=== PATIENT | female | born 1975 | race Caucasian/White ===

== ENCOUNTER 2018-12-05 09:59 | Outpatient (CLI) | payer MEDICAID, SELFPAY ==
[2018-12-05 11:03] LABS: HCT 36.2 % (36.0-46.0); HGB 11.3 g/dL (12.0-15.5); Mean Corp. HGB Concentration 31.2 g/dL (32.0-36.0); Mean Corpuscular Volume 92.8 fL (80-95); Mean Platelet Volume 10.5 fL (8.0-11.0); Platelet Count 292 x1000/uL (130-400); RBC Distribution Width 18.4 % (11.7-14.6); White Blood Cell Count 5.39 k/cumm (4.4-10.8)
== END 2018-12-05 10:19 ==
PROVIDERS: PCP Nurse Practitioner Family; Visit Provider Obstetrics & Gynecology
DX: N93.9 Abnormal uterine and vaginal bleeding, unspecified (principal); Z01.818 Encounter for other preprocedural examination
CPT/HCPCS: 36415; 85027; 86850; 86900; 86901

== ENCOUNTER 2018-12-06 06:12 | Day surgery (SDC) | payer MEDICAID, SELFPAY ==
[2018-12-06 06:25] VITALS: BP 120/81; PULSE 66; RESP 18; TEMP 36.7; O2SAT 98
[2018-12-06] MEDS: Lactated Ringers 1,000 ML 125 ML IV (06:47)
[2018-12-06] MEDS: Lidocaine 1% Multi-Dose 50 ML VIAL (07:50)
--- NOTE | 2018-12-06 07:50 | ENDOMET_PTH ---
PATIENT: Lauren Mascorro LOC: [facility] U#:[id number] AGE/SX: 43/F ROOM: RE12/06/[address]: Gunnar Canales MD : 1975 BED: DIS: 12/06/2018 SPEC #: [id number] RECD: 12/06/18 12:46 STATUS: JANET REQ #: [id number] PHIL: 12/06/18 07:[address]: Gunnar Canales DEPT: Surgical Specimen RECD BY: Hodan Apodaca ENTERED: 12/06/18 12:47 SP TYPE: Endomet OTHR DR: Vivian Felipe Tissues: 1 - ENDOMETRIUM BX/CURRETTE 2 - ENDOMETRIUM BX/CURRETTE Procedures: GROSS AND MICRO LEVEL 4 Comments: [id number]
[2018-12-06] MEDS: Lidocaine 2% Jelly 6 ML SYR (07:51)
[2018-12-06 08:40] VITALS: BP 124/80; PULSE 54; RESP 16; TEMP 36; O2SAT 100
--- NOTE | 2018-12-06 09:54 | W.PM.OP ---
Date of service: 12/06/18 Time of Service: 09:54 Operative Note DATE OF PROCEDURE: 12/06/18 PRE-OP DIAGNOSIS: Abnormal uterine bleeding POST-OP DIAGNOSIS: same PROCEDURE: Hysteroscopy, D&C with polypectomy SURGEON: Gunnar Canales ANESTHESIA: MAC and local ESTIMATED BLOOD LOSS: 10 PATHOLOGY: other (1. Endometrial polyps 2. Endometrial curettings) COMPLICATIONS: None Patient was transported to: PACU Patient's condition: stable Findings: 1. Multiple (6-7) small polyps scattered from the lower endometrial cavity to the uterine fundus. Procedure Description: The patient was taken to the operating room and after an adequate level of sedation was achieved the patient was placed in lithotomy position. A weighted speculum was placed in the vagina with good visualization of the cervix. The anterior lip of the cervix was grasped with a single-tooth tenaculum. The paracervical block with 1% plain lidocaine solution was instilled. The 5 mm 30 degree hysteroscope with normal saline distention media was advanced to the cervix with good visualization of the endometrial cavity. There were numerous endometrial polyps from the lower uterine cavity all the way to the fundus. I was able to visualize approximately 6-7 polyps. The hysteroscope was removed and the uterine cavity was explored with polyp forceps and the majority of polyps were removed in this manner. The hysteroscope was reinserted several remained. A sharp curettage was performed and the remaining polyps were removed. This was again confirmed to the hysteroscope. Endometrial polyps and endometrial curettings were submitted as separate specimens. The procedure was concluded at this point. Sponge and instrument counts were correct at the conclusion of the procedure and the patient was transferred to PACU stable condition.
== END 2018-12-06 09:40 | disposition home or self-care (01) ==
PROVIDERS: Visit Provider Obstetrics & Gynecology
PROC: 0UDB8ZZ Extraction of Endometrium, Via Natural or Artificial Opening Endoscopic (ICD-10-PCS; CPT 58558; principal; 2018-12-06 07:30)
DX: N93.8 Other specified abnormal uterine and vaginal bleeding (principal); N71.0 Acute inflammatory disease of uterus; N71.1 Chronic inflammatory disease of uterus; N84.0 Polyp of corpus uteri
CPT/HCPCS: 58558; 81025; 88305; J1100; J1885; J2250; J2405; J3010

== ENCOUNTER 2020-12-28 02:21 | Outpatient (CLI) | payer MEDICAID, SELFPAY ==
--- NOTE | 2020-12-28 09:00 | DI.MAMMO_ITS ---
Exam(s) MAMMO SCREENING EXAM: MAMMO SCREENING CLINICAL HISTORY: screening TECHNIQUE: Bilateral full field digital CC and MLO mammographic images were obtained with 3D tomosyn thesis and utilizing computer aided detection (CAD). COMPARISON: Available for comparison. FINDINGS: Masses/Architectural Distortion: None seen. Microcalcifications: No suspicious pleomorphic-type are seen. Skin Thickening/Nipple Retraction: None. IMPRESSION: 1. No significant interval change with no specific features of malignancy noted. 2. Unless there is more urgent need, screening mammography is recommended, as per [employer] guidelines. BI-RADS Category 1 - Negative Breast Density - Category D - Extremely dense Breast density category C or D implies that the patient has dense breast tissue. Dense breast tissue is very common and is not abnormal but dense breast tissue can make it harder to find cancer on a ma mmogram. Also, dense breast tissue may increase their breast cancer risk. This information about the result of the mammogram report was provided to the patient to raise their awareness. Use this report when you speak with the patient about their risks for breast cancer, which includes their family hist ory. At that time, you may recommend for more screening tests (Ultrasound or MRI) as they might be us eful based on their risk. A negative radiographic report should not delay biopsy if a dominant or clinically suspicious mass is present. Up to ten percent of cancers are not identified on mammography. A negative report may reinforce clinical impression. Adenosis and dense breasts may obscure an underlying neoplasm. False positive reports average 6 to 10%. Patient will receive a letter notifying them of these results.
== END 2020-12-28 02:41 ==
PROVIDERS: PCP Family Medicine; Visit Provider Nurse Practitioner Women's Health
DX: Z12.31 Encounter for screening mammogram for malignant neoplasm of breast (principal)
CPT/HCPCS: 77063; 77067

== ENCOUNTER 2021-07-08 02:36 | Outpatient (CLI) | payer MEDICAID, SELFPAY ==
[2021-07-08 12:29] LABS: Calculated LDL 75 mg/dL (<100); Cholesterol 184 mg/dL (<200); HDL Cholesterol 89 mg/dL (40-60); TSH 1.61 uIU/mL (0.36-3.74); Triglyceride 102 mg/dL (<150)
[2021-07-08 13:16] LABS: Vitamin D 25 Total 67.8 ng/mL (30-100)
== END 2021-07-08 02:37 | disposition home or self-care (01) ==
LOC: LBO 02:37
PROVIDERS: PCP Internal Medicine; Visit Provider Internal Medicine
DX: E55.9 Vitamin D deficiency, unspecified (principal); F32.9 Major depressive disorder, single episode, unspecified; Z13.220 Encounter for screening for lipoid disorders
CPT/HCPCS: 36415; 80061; 82306; 84443

== ENCOUNTER 2022-03-30 12:10 | Outpatient (REF) | payer MEDICAID, SELFPAY ==
--- NOTE | 2022-03-30 11:35 | PAPFT_PTH ---
PATIENT: Lauren Mascorro LOC: [facility] U#:[id number] AGE/SX: 46/F ROOM: RE03/30/[address]: Saranya Mera NP : 1975 BED: DIS: 03/30/2022 SPEC #: [id number] RECD: 03/30/22 17:22 STATUS: JANET BUTCHER #: [id number] PHIL: 03/30/22 11:[address]: Saranya Mera NP DEPT: [facility] Cytology RECD BY: Hodan Apodaca ENTERED: 03/30/22 17:22 SP TYPE: PAPFT OTHR DR: Alie Chong MD Tissues: 1 - CX/ENDOCX FOR PAP SMEARS Procedures: PAP THIN PREP/UVM Screening HPV DNA PROBE Comments: [id number]
== END 2022-03-30 12:11 | disposition home or self-care (01) ==
LOC: LBN 12:10
PROVIDERS: PCP Internal Medicine; Visit Provider Nurse Practitioner Women's Health
DX: Z12.4 Encounter for screening for malignant neoplasm of cervix (principal); Z11.51 Encounter for screening for human papillomavirus (HPV); R87.810 Cervical high risk human papillomavirus (HPV) DNA test positive
CPT/HCPCS: 88142; 87624

== ENCOUNTER 2022-09-05 01:08 | Outpatient (CLI) | payer MEDICAID, SELFPAY ==
[2022-09-05 15:16] LABS: Abs Immature Grans 0.02 10^3/uL (0.0-0.06); Absolute Basophil Count 0.04 10^3/uL (0.0-0.2); Absolute Eosinophil Count 0.07 10^3/uL (0.0-0.7); Absolute Lymphocyte Count 2.83 10^3/uL (1.2-3.4); Absolute Monocyte Count 0.35 10^3/uL (0.1-0.8); Basophils % 0.5; Eosinophils % 0.9; HCT 34.1 % (36.0-46.0); Immature Grans % 0.3; Lymphocytes % 36.7; MCH 28.6 pg (27.0-33.0); MCHC 32.3 % (32.0-36.0); MCV 89 fL (80-95); MPV 9.6 fL (8.0-11.0); Monocytes % 4.5; Neutrophils % 57.1; Platelet Count 222 10^3/uL (130-400); RBC 3.85 10^6/uL (3.93-5.22); RDW 13.1 % (11.7-14.6); RDW-SD 42.6 fL; WBC 7.71 10^3/uL (4.4-10.8)
[2022-09-05 15:21] LABS: ESR < 1 mm/hr (0-20)
[2022-09-05 16:32] LABS: C-Reactive Protein 0.05 mg/dL (0.0-0.3)
== END 2022-09-05 01:09 | disposition home or self-care (01) ==
LOC: LBO 01:08
PROVIDERS: PCP Family Medicine; Visit Provider Orthopaedic Surgery Foot and Ankle Surgery
DX: M85.672 Other cyst of bone, left ankle and foot (principal); M25.872 Other specified joint disorders, left ankle and foot; Z96.662 Presence of left artificial ankle joint
CPT/HCPCS: 36415; 85652; 85025; 86140

== ENCOUNTER 2022-10-26 01:17 | Outpatient (CLI) | payer MEDICAID, SELFPAY ==
--- NOTE | 2022-10-26 07:15 | DI.US_ITS ---
Exam(s) US PELVIS TRANSVAGINAL EXAM: US PELVIS TRANSVAGINAL CLINICAL HISTORY: heavy bleeding,MENORRHAGIA, N92.0 TECHNIQUE: Transabdominal and transvaginal imaging was performed using standard protocol. COMPARISON: No exams were available for comparison FINDINGS: UTERUS: Anteverted. 11.1 by 5.6 x 7.5 cm Endometrium: Thickened at 3 cm. Heterogeneous. Myometrium: Unremarkable. No fibroids identified. Cervix: Unremarkable. OVARIES: Right: Not visualized. Left: Cyst or mass: Follicle. DOPPLER: Color: uniform flow to the left. No hyperemia. CUL-DE-SAC: Free fluid: None. IMPRESSION: 1. Markedly thickened heterogeneous endometrium.. 2. Unremarkable left ovary. Right ovary not visualized.. DATA REPOSITORY:
== END 2022-10-26 01:37 ==
LOC: DI 01:17
PROVIDERS: PCP Student in an Organized Health Care Education/Training Program; Visit Provider Obstetrics & Gynecology
DX: N92.0 Excessive and frequent menstruation with regular cycle (principal); R93.89 Abnormal findings on diagnostic imaging of other specified body structures
CPT/HCPCS: 76830; 76856

== ENCOUNTER 2022-10-29 15:14 | Emergency (ER) | payer MEDICAID, SELFPAY ==
[2022-10-29 15:31] VITALS: BP 143/99; PULSE 80; RESP 16; TEMP 37.2; O2SAT 100
--- NOTE | 2022-10-29 15:48 | ED.GENADUL_ITS ---
Discharge Plan Disposition Patient Disposition: Home Discharge Details Clinical Impression: Abnormal uterine bleeding (AUB) Primary Care Provider: Cate Gómez ED Provider: Amira Kebede Home Meds and New Rx's Prescriptions: Continued ascorbic acid (vitamin C) 500 mg tablet 500 mg PO DAILY cholecalciferol (vitamin D3) 25 mcg/drop ( 1,000 unit/drop) drops 25 mcg PO DAILY magnesium 150 mg PO HS calcium carbonate 500 mg calcium (1,250 mg) tablet 500 mg PO DAILY lorazepam 1 mg tablet 1 mg PO QHS PRN (Reason: insomnia) Qty: 10 0RF naproxen sodium [Aleve] 220 mg capsule 220 mg PO BID bupropion HCl 150 mg tablet extended release 24 hr 150 mg PO QAM Qty: 90 3RF norethindrone acetate [Aygestin] 5 mg tablet 5 mg PO .COMPLEX Qty: 30 0RF Rx Instructions: 5 mg orally every six hours beginning immediately; tranexamic acid 650 mg tablet 1,300 mg PO Q12H 5 Days Qty: 20 0RF multivitamin [Multi-Day] 1 EACH tablet 1 ea PO DAILY Discharge Instructions Instructions: Abnormal (Dysfunctional) Uterine Bleeding (ED) Additional Instructions: Continue to take the previously prescribed medications as directed. Follow-up with PET NUTRITION SPECIALIST Monday. Return to the ER for continued bleeding at this rate, or worsening bleeding. I did speak with Dr. Echevarria who does not feel that you need an emergent surgery today. Follow up with primary care provider/[facility]ITION SPECIALIST in 3-5 days if needed. Return to ED sooner if any worsening or concerns. Increase oral fluids. Your H&H today is 9.9 and 30 Referrals: Cate Gómez DO [Primary Care Provider] - 1 week Ciara Echevarria MD [ [facility]YSICIAN] - 3 days Discharge Data Discharge Date/Time-TO BE ENTERED AT DEPARTURE: 10/29/22 17:00 Medical Decision Making 47-year-old female presents to the ER with a chief complaint of heavy vaginal bleeding. Patient reports that bleeding of 1 pad an hour began yesterday at 11 AM increased today to 1 pad every 1/2 hour. She denies any abdominal pain or cramping. Denies any lightheadedness or dizziness. She does report feeling slightly weak and short of breath. She does have a past medical history of anemia, ankle fracture with recent surgery and vitamin D deficiency. She is scheduled for D&C on and was instructed to present to the ER for evaluation and blood draw by her PET NUTRITION SPECIALIST. CBC CMP type and screen ordered. CBC shows hemoglobin of 9.9 hematocrit of 30.5, moderate blood in the urinalysis 20-50 RBCs, CMP within normal limits. 1633: Spoke with Dr. Yao Jo regarding lab results, she verbalized understanding, she was started on high dose progesterone hormone today. She does not think patient needs a emergent D&C today. I will reiterate recommendations to the patient to continue taking the previously prescribed medications as directed. I will discuss strict return instructions if bleeding increases, dizziness lightheadedness fast heart rate or any concerns to call PET NUTRITION SPECIALIST. Plan moving forward is to continue with her previously scheduled D&C this week. At this time patient's vital signs are within normal limits, her H&H has dropped somewhat but is not criteria for blood transfusion or urgent surgery at this time. Discussed recommendations with patient who verbalized understanding. Patient discharged in hemodynamically stable condition. I did instruct her to continue taking her medication as previously prescribed. This text was generated using [employer] dictation system, please disregard any oddities of phrase or misspellings. Medical Records Medical records reviewed: Yes I reviewed the patient's medical records. Lab Data Lab results reviewed: Yes I reviewed the patient's lab results. Labs: Laboratory Tests Range/Units 10/29/22 10/29/22 10/29/22 15:50 15:50 15:50 WBC (4.4-10.8) 10^3/uL 7.96 RBC (3.93-5.22) 10^6/uL 3.46 L Hgb (11.2-15.7) g/dL 9.9 L Hct (36.0-46.0) % 30.5 L MCV (80-95) fL 88 MCH (27.0-33.0) pg 28.6 MCHC (32.0-36.0) % 32.5 RDW (11.7-14.6) % 13.9 Plt Count (130-400) 10^3/uL 332 MPV (8.0-11.0) fL 10.2 Immature Gran % 0.1 Neutrophils % 56.3 Lymphocytes % 36.2 Monocytes % 5.5 Eosinophils % 1.1 Basophils % 0.8 Nucleated RBC % (0.0-0.3) % 0.0 Absolute Neutrophils (1.2-6.7) 10^3/uL 4.48 Absolute Lymphocytes (1.2-3.4) 10^3/uL 2.88 Absolute Monocytes (0.1-0.8) 10^3/uL 0.44 Absolute Eosinophils (0.0-0.7) 10^3/uL 0.09 Absolute Basophils (0.0-0.2) 10^3/uL 0.06 Sodium (136-145) mmol/L 140 Potassium (3.5-5.1) mmol/L 4.1 Chloride (98-107) mmol/L 103 Carbon Dioxide (21.0-32.0) mmol/L 30.3 Anion Gap (3-11) mmol/L 6.7 BUN (7-18) mg/dL 11 Creatinine (0.55-1.02) mg/dL 0.9 Est GFR (CKD-EPI 2020) (mL/min/1.73m2) 80.34 Glucose (74-106) mg/dL 89 Calcium (8.5-10.1) mg/dL 9.4 Total Bilirubin (0.2-1.0) mg/dL 0.2 AST (15-37) U/L 20 ALT (14-59) U/L 22 Alkaline Phosphatase (46-116) U/L 93 Total Protein (6.4-8.2) g/dL 7.7 Albumin (3.4-5.0) g/dL 4.5 Urine Color (Yellow) Yellow Urine Clarity (Clear) Sl Cloudy Urine pH (5-8) 7.5 Ur Specific [place] (1.005-1.025) 1.020 Urine Protein (Negative) mg/dL Negative Urine Ketones (Negative) mg/dL Negative Urine Blood (Negative) Moderate H Urine Nitrite (Negative) Negative Urine Bilirubin (Negative) Negative Urine Urobilinogen (Up to 0.2) mg/dL 0.2 Ur Leukocyte Esterase (Negative) Negative Urine RBC (0-2) HPF 20-50 H Urine WBC (0-5) HPF 0-2 Ur Epithelial Cells (Negative) HPF Few Urine Crystals (Negative) HPF Negative Urine Bacteria (Negative) HPF Negative Urine Casts (Negative) LPF Negative Urine Mucus (Negative) Negative Urine Other (Negative) Negative Ur Culture Indicated? No Urine Glucose (Negative) mg/dL Negative HPI General Mode of arrival: ambulatory . Date/Time Provider Initiated Documentation: 10/29/22 15:14 . Limitations to Documentation: no limitations . Information obtained by: patient, RN notes reviewed and old records reviewed . HPI Narrative: 47-year-old female presents to the ER with a chief complaint of heavy vaginal bleeding. Patient reports that bleeding of 1 pad an hour began yesterday at 11 AM increased today to 1 pad every 1/2 hour. She denies any abdominal pain or cramping. Denies any lightheadedness or dizziness. She does report feeling slightly weak and short of breath. She does have a past medical history of anemia, ankle fracture with recent surgery and vitamin D deficiency. She is scheduled for D&C on and was instructed to present to the ER for evaluation and blood draw by her PET NUTRITION SPECIALIST. Related Data Home Medications Medication Instructions Recorded Confirmed multivitamin (Multi-Day tablet) 1 ea PO DAILY 11/19/12 10/29/22 ascorbic acid (vitamin C) 500 mg 500 mg PO DAILY 02/16/21 10/29/22 tablet cholecalciferol (vitamin D3) 25 25 mcg PO DAILY 02/16/21 10/29/22 mcg/drop (1,000 unit/drop) oral drops magnesium 150 mg PO HS 11/09/21 10/29/22 bupropion HCl 150 mg 24 hr tablet, 150 mg PO QAM #90 tabs 02/01/22 10/29/22 extended release calcium carbonate 500 mg calcium 500 mg PO DAILY 05/27/22 10/29/22 (1,250 mg) tablet lorazepam 1 mg tablet 1 mg PO QHS PRN insomnia #10 tabs 05/27/22 10/29/22 naproxen sodium 220 mg capsule 220 mg PO BID Ankle pain 09/22/22 10/29/22 (Aleve) norethindrone acetate 5 mg tablet 5 mg PO .COMPLEX #30 tabs 10/29/22 10/29/22 (Aygestin) tranexamic acid 650 mg tablet 1,300 mg PO Q12H 5 days #20 tabs 10/29/22 10/29/22 Previous Rx's Medication Instructions Recorded bupropion HCl 150 mg 24 hr tablet, 150 mg PO QAM #90 tabs 02/01/22 extended release lorazepam 1 mg tablet 1 mg PO QHS PRN insomnia #10 tabs 05/27/22 norethindrone acetate 5 mg tablet 5 mg PO .COMPLEX #30 tabs 10/29/22 (Aygestin) tranexamic acid 650 mg tablet 1,300 mg PO Q12H 5 days #20 tabs 10/29/22 Allergies Allergy/AdvReac Type Severity Reaction Status Date / Time erythromycin base AdvReac Mild VOMITING Verified 10/29/22 16:01 General Stated Complaint: PET NUTRITION SPECIALIST AMBAR: 3 Review of Systems All systems reviewed & are unremarkable except as noted in HPI and below Gastrointestinal Gastrointestinal: Denies abdominal pain, Denies diarrhea, Denies nausea and Denies vomiting Genitourinary Genitourinary: Reports as per HPI and Reports abnormal vaginal bleeding PFSH All Active Problems (Updated 10/29/22 @ 16:45 by Amira Kebede NP) Abnormal uterine bleeding (AUB) (Acute) 09/2018:1 full month heavy bleeding. Hbg 8.4, nl sono. Continuous OCPs x3mo. 11/2020: Pt declining Mirena. 09/2022: very heavy period x2 days Depression (Acute) Generalized anxiety disorder (Acute) Medical History Anemia Arch pain of left foot COVID (~12/04/21) History of ankle fracture Insomnia associated with menopause Resolved with benadryl use Vitamin D deficiency Surgical History Fracture, Open Treatment (09/2016) ORIF LEFT ANKLE. Patient reports is a total ankle replacement [facility] History of ankle surgery (~2009) and 2010 Dr Taylor History of ankle surgery Left ankle Arthrotomy 09/26/22 from f/u [facility] note dated 10/11/22.HE History of total replacement of left ankle (~2016) [facility] S/P biopsy L ankle bone and soft tissue Dr Farnaz MD-[facility] Family History Mother Anxiety Depression Father Bipolar disorder Alcohol abuse Depression Anxiety ADHD Melanoma Brother Alcohol abuse Depression Anxiety Sister Depression Anxiety Brother ADHD Anxiety Depression Maternal Aunt Breast cancer Social History Smoking/Tobacco Use Status: Never Second Hand Exposure: Yes Smoking risk assessment performed?: Yes Alcohol Intake: current Alcohol Intake frequency: a few times a month Alcohol type: wine Drug use: Never Substance use type: does not use Adopted: No Caregiver/Support person: No Foster care: No Household members: children and other Details: Pt is . Has 10yo '[place] Housing: apartment Number of Children: 1 Communication Needs: None Education Level: college Details: Bachelor's current occupation: Student@[employer] Pets and animals: No Sexually active: No Do you think of yourself as: straight/heterosexual Current gender identity: female What is your relationship status?: How often do you talk on the phone with friends or family?: three or more times per week How often do you get together with friends or relatives?: three or more times per week Do you belong to any clubs or organized social groups?: no Panel score (0-1 are the most socially isolated patients): 1 What type of physical activity do you participate in: walking and other Details: hiking Shanita/Islam: Other Special shanita needs: No Seatbelt use: always Working smoke detector in home: Yes Fire extinguisher in home: Yes Carbon monox detector in home: Yes Firearms in home: No Do you feel safe at home: Yes Do you feel safe in your relationship?: Yes Female Reproductive History Menstrual control method: condoms History History 2 Para 1 Hx # Term Pregnancies 1 Multiple births Hx # Pregnancies Ectopic pregnancies AB induced Hx Number of Living Children 1 AB spontaneous Exam Narrative Exam Narrative: Constitutional: Alert and oriented x3. Appears stated age. Normal body habitus. Head: Normocephalic, no trauma. Eyes: Pupils PERRL, Red reflex noted, EOM's intact. Eyelids symmetrical without lesions, discharge, or swelling. ENT: Bilateral TM's WNL, External ear normal to inspection, no mastoid TTP, swelling, or erythema, Nasal turbinates WNL, no nasal discharge. Normal dentition, Posterior pharynx WNL, no exudate. Chest: RRR, Normal S1, S2, distal pulses intact. Resp: Lungs clear to auscultation bilaterally, no wheezes, rales, or rhonchi. Abdomen: Soft, non-distended, Normoactive bowel sounds all 4 quads. Musculoskeletal: Normal gait, 5/5 strength to all four extremities. Skin: No suspicious rashes or lesions. Capillary refill less than 2 sec. Neurologic: Cranial nerves II-XII intact. Alert and oriented x 3. Motor: No deficits noted. Sensory: Intact bilaterally all 4 extremities. Reflexes: DTR's intact bilaterally.. Hematologic/Lymphatic: No ecchymosis, no lymphadenopathy. Course Vital Signs Vital signs: Vital Signs Temperature 37.2 C 10/29/22 15:31 Pulse 80 10/29/22 15:31 Respiratory Rate 16 10/29/22 15:31 Blood Pressure 143/99 H 10/29/22 15:31 Pulse Oximetry 100 10/29/22 15:31 Temperature 37.2 C 10/29/22 15:31 Temperature Source Oral 10/29/22 15:31 Pulse 80 10/29/22 15:31 Respiratory Rate 16 10/29/22 15:31 Blood Pressure 143/99 H 10/29/22 15:31 Blood Pressure Position Sitting 10/29/22 15:31 Pulse Oximetry 100 10/29/22 15:31 Oxygen Delivery Method Room Air 10/29/22 15:31 Oxygen Flow Rate 0 10/29/22 15:31 Pain Level 0 10/29/22 15:31
[2022-10-29 16:07] LABS: Abs Immature Grans 0.01 10^3/uL (0.0-0.06); Absolute Basophil Count 0.06 10^3/uL (0.0-0.2); Absolute Eosinophil Count 0.09 10^3/uL (0.0-0.7); Absolute Lymphocyte Count 2.88 10^3/uL (1.2-3.4); Absolute Monocyte Count 0.44 10^3/uL (0.1-0.8); Absolute Neutrophil Count 4.48 10^3/uL (1.2-6.7); Basophils % 0.8; Eosinophils % 1.1; HCT 30.5 % (36.0-46.0); HGB 9.9 g/dL (11.2-15.7); Immature Grans % 0.1; Lymphocytes % 36.2; MCH 28.6 pg (27.0-33.0); MCHC 32.5 % (32.0-36.0); MCV 88 fL (80-95); MPV 10.2 fL (8.0-11.0); Monocytes % 5.5; Neutrophils % 56.3; Platelet Count 332 10^3/uL (130-400); RBC 3.46 10^6/uL (3.93-5.22); RDW 13.9 % (11.7-14.6); RDW-SD 43.9 fL; WBC 7.96 10^3/uL (4.4-10.8)
[2022-10-29 16:08] LABS: Bilirubin Negative (Negative); Blood Moderate (Negative); Clarity Sl Cloudy (Clear); Glucose Negative (Negative); Ketones Negative (Negative); Leukocyte Esterase Negative (Negative); Nitrite Negative (Negative); Urobilinogen 0.2 mg/dL (Up to 0.2); pH 7.5 (5-8)
[2022-10-29 16:11] LABS: Bacteria Negative HPF (Negative); C & S Indicated? No; Casts Negative LPF (Negative); Crystals Negative HPF (Negative); Epithelial Cells Few HPF (Negative); Mucus Negative (Negative); Other Cells Negative (Negative); RBC 20-50 HPF (0-2); WBC 0-2 HPF (0-5)
[2022-10-29 16:18] LABS: ALT 22 U/L (14-59); AST 20 U/L (15-37); Albumin 4.5 g/dL (3.4-5.0); Alkaline Phosphatase 93 U/L (46-116); Anion Gap 6.7 mmol/L (3-11); BUN 11 mg/dL (7-18); Bilirubin, Total 0.2 mg/dL (0.2-1.0); CO2 30.3 mmol/L (21.0-32.0); CREATININE 0.9 mg/dL (0.55-1.02); Calcium 9.4 mg/dL (8.5-10.1); Chloride 103 mmol/L (98-107); Estimated GFR 80.34 (mL/min/1.73m2); Glucose 89 mg/dL (74-106); Potassium 4.1 mmol/L (3.5-5.1); Sodium 140 mmol/L (136-145); Total Protein 7.7 g/dL (6.4-8.2)
[2022-10-29 16:58] VITALS: BP 129/84; PULSE 65; RESP 16; TEMP 37; O2SAT 99
== END 2022-10-29 17:00 | disposition home or self-care (01) ==
PROVIDERS: Emergency Provider Registered Nurse Emergency; PCP Student in an Organized Health Care Education/Training Program
DX: N93.9 Abnormal uterine and vaginal bleeding, unspecified (principal)
CPT/HCPCS: 36415; 80053; 86850; 86900; 86901; 99283; 81003; 81015; 85025

== ENCOUNTER 2022-11-01 02:27 | Outpatient (CLI) | payer MEDICAID, SELFPAY ==
[2022-11-01 13:25] LABS: HCG Qual (Serum) Negative
== END 2022-11-01 02:28 | disposition home or self-care (01) ==
LOC: LBO 02:28
PROVIDERS: PCP Student in an Organized Health Care Education/Training Program; Visit Provider Obstetrics & Gynecology
DX: Z01.818 Encounter for other preprocedural examination (principal)
CPT/HCPCS: 36415; 86850; 86900; 86901; 84703

== ENCOUNTER 2022-11-03 11:25 | Day surgery (SDC) | payer MEDICAID, SELFPAY ==
[2022-11-03] VITALS (7 sets, daily range): BP systolic 111–137; BP diastolic 52–104; PULSE 61–87; RESP 16–23; TEMP 36.3–36.7; O2SAT 97–100; BMI 31.6
[2022-11-03] MEDS: Lactated Ringers 1,000 ML 125 ML IV (12:05)
--- NOTE | 2022-11-03 12:36 | W.ANESPRE ---
General Info Date of Service Date Performed: 11/03/22 Height: 5 ft 4 in Weight: 83.5 kg Body Mass Index (BMI): 31.6 Surgical Procedure: Operation Date: 11/03/22 13:10 Proposed Procedure Side Surgeon p Dilation & Curettage with Hysteroscopy, Myosure Simi Fairbanks MD s Insertion of IUD, Judy Fairbanks MD Pre-Op Diagnosis Post-Op Diagnosis Abnormal uterine bleeding Meds Allergies and Home Medications Allergies Allergy/AdvReac Type Severity Reaction Status Date / Time erythromycin base AdvReac Mild VOMITING Verified 11/03/22 11:31 Home Medication Medication Instructions Recorded multivitamin (Multi-Day tablet) 1 ea PO DAILY 11/19/12 ascorbic acid (vitamin C) 500 mg 500 mg PO DAILY 02/16/21 tablet cholecalciferol (vitamin D3) 25 25 mcg PO DAILY 02/16/21 mcg/drop (1,000 unit/drop) oral drops magnesium 150 mg PO HS 11/09/21 bupropion HCl 150 mg 24 hr tablet, 150 mg PO QAM #90 tabs 02/01/22 extended release calcium carbonate 500 mg calcium 500 mg PO DAILY 05/27/22 (1,250 mg) tablet lorazepam 1 mg tablet 1 mg PO QHS PRN insomnia #10 tabs 05/27/22 naproxen sodium 220 mg capsule 220 mg PO BID Ankle pain 09/22/22 (Aleve) norethindrone acetate 5 mg tablet 5 mg PO .COMPLEX #30 tabs 10/29/22 (Aygestin) Current Visit Medications: Current Medications Generic Name Dose Route Start Last Admin Trade Name Ayoq PRN Reason Stop Dose Admin Ringer's Solution 1,000 mls @ 125 mls/hr 11/03/22 06:00 11/03/22 12:05 IV 11/03/22 16:00 125 mls/hr INFUSION KIANA Administration IV Miscellaneous Supplies 1 each 11/03/22 06:00 Iv Access IV 11/03/22 23:59 DIRECTED KIANA Sodium Chloride 0 ml 11/03/22 06:00 Normal Saline Flush 10 Ml Syr IV 11/03/22 23:59 PRN PRN Sodium Chloride 0 ml 11/03/22 06:00 Normal Saline 10 Ml Vial IJ 11/03/22 23:59 DIRECTED PRN Sterile Water 0 ml 11/03/22 06:00 Water,Injection,Sterile 10 Ml Vial IJ 11/03/22 23:59 DIRECTED PRN PFSH Active Problems Active Problems: Problem Status Onset Code Abnormal uterine bleeding (AUB) Depression F32.9 Generalized anxiety disorder F41.1 Medical History Medical History Anemia Arch pain of left foot COVID (~12/04/21) History of ankle fracture Insomnia associated with menopause Resolved with benadryl use Vitamin D deficiency Surgical History Surgical History Fracture, Open Treatment (09/2016) ORIF LEFT ANKLE. Patient reports is a total ankle replacement [facility] History of ankle surgery (~2009) and 2010 Dr Taylor History of ankle surgery Left ankle Arthrotomy 09/26/22 from f/u [facility] note dated 10/11/22.HE History of total replacement of left ankle (~2016) [facility] S/P biopsy L ankle bone and soft tissue Dr Farnaz MD-[facility] Tobacco Smoking/Tobacco Use Status: Never Passive smoking exposure: No Second hand exposure: Yes Alcohol Alcohol Intake: current Alcohol intake frequency: a few times a month Alcohol type: wine Substance Use Substance use: Never Substance use type: does not use Prental History History 2 Para 1 Hx # Term Pregnancies 1 Multiple births Hx # Pregnancies Ectopic pregnancies AB induced Hx Number of Living Children 1 AB spontaneous Vital Signs and Lab Results Vital Signs Most Recent Vital Signs in EMR: Most Recent Vital Signs Temp Pulse Resp BP Pulse Ox 36.3 C L 87 16 137/104 H 97 11/03/22 11:36 11/03/22 11:36 11/03/22 11:36 11/03/22 11:36 11/03/22 11:36 Lab Results Blood Type / Crossmatch: Patient ABO/Rh A Negative 11/01/22 Antibody Screen NEGATIVE 11/01/22 Complete Blood Count: White Blood Count 7.96 10^3/uL (4.4-10.8) 10/29/22 15:50 Red Blood Count 3.46 10^6/uL (3.93-5.22) L 10/29/22 15:50 Hemoglobin 9.9 g/dL (11.2-15.7) L 10/29/22 15:50 Hematocrit 30.5 % (36.0-46.0) L 10/29/22 15:50 Platelet Count 332 10^3/uL (130-400) 10/29/22 15:50 Complete Metabolic Panel: Sodium 140 mmol/L (136-145) 10/29/22 15:50 Potassium 4.1 mmol/L (3.5-5.1) 10/29/22 15:50 Chloride 103 mmol/L (98-107) 10/29/22 15:50 Carbon Dioxide 30.3 mmol/L (21.0-32.0) 10/29/22 15:50 BUN 11 mg/dL (7-18) 10/29/22 15:50 Creatinine 0.9 mg/dL (0.55-1.02) 10/29/22 15:50 Est GFR (CKD-EPI 2020) 80.34 (mL/min/1.73m2) 10/29/22 15:50 Calcium 9.4 mg/dL (8.5-10.1) 10/29/22 15:50 Albumin 4.5 g/dL (3.4-5.0) 10/29/22 15:50 Glucose 89 mg/dL (74-106) 10/29/22 15:50 Liver Function Panel: Alanine Aminotransferase (ALT/SGPT) 22 U/L (14-59) 10/29/22 15:50 Aspartate Amino Transf (AST/SGOT) 20 U/L (15-37) 10/29/22 15:50 Coagulation Panel: No Data to Display Cardiac Panel: No Data to Display Arterial Blood Gas: No Data to Display Venous Blood Gas: No Data to Display Pancreas Panel: No Data to Display Thyroid Panel: No Data to Display Infectious Disease: No Data to Display Blood Cultures: No Data to Display Toxicology Panel: No Data to Display Panel: Urine HCG, Qualitative Negative 10/21/22 15:29 Serum HCG, Qualitative Negative 11/01/22 12:18 Anesthesia Assessment and Plan Anesthesia History Personal History: No History of Anesthesia Complications Family History: No Family History of Anesthesia Complications Exercise Tolerance Exercise Tolerance: Metabolic Equivalents>4 Pertinent Negatives Pertinent Negatives: No Symptoms of GERD, No Major Cardiovascular Symptoms or Complaints and No Major Pulmonary Symptoms or Complaints Cardiac & Pulmonary Exam Cardiac Exam: Normal S1/S2 Heart Sounds Pulmonary Exam: Clear Bilateral Breath Sounds Implantable Cardiac Device Does patient have a Pacemaker or an ICD?: No Airway Exam Known Difficult Airway: No Mallampati Class: 2 Mouth Opening: Normal (> 3cm) Thyromental Distance: Greater than 3 cm Neck Range of Motion: Full ROM Neck Circumference: Normal Teeth Condition: Normal Dentition ASA Classification ASA Score: ASA 2 Emergency Case?: No NPO Status NPO Status: NPO Clears >2 hours, Solids >8 hours Status Status: Negative HCG Anesthesia Plan Resuscitation Status: Full Code Anesthesia Technique: General Anesthesia Airway Planned: Natural Airway Monitors Used: Standard Monitors
--- NOTE | 2022-11-03 13:20 | ENDOMET_PTH ---
PATIENT: Lauren Mascorro LOC: [facility] U#:[id number] AGE/SX: 47/F ROOM: RE11/03/[address]: Simi Fairbanks MD : 1975 BED: DIS: 11/03/2022 SPEC #: [id number] RECD: 11/03/22 17:59 STATUS: JANET REQ #: [id number] PHIL: 11/03/22 13:[address]: Simi Fairbanks DEPT: Surgical Specimen RECD BY: Hodan Apodaca ENTERED: 11/03/22 17:59 SP TYPE: Endomet OTHR DR: Cate Gómez DO Tissues: 1 - ENDOMETRIUM BX/CURRETTE Procedures: GROSS AND MICRO LEVEL 4 Comments: [id number]
--- NOTE | 2022-11-03 13:51 | W.ANESPOSTOP ---
Postoperative Evaluation Date, Time and Location Date Performed: 11/03/22 Time Performed: 13:51 Patient Location: PACU Vital Signs Most Recent Imported Vital Signs: Most Recent Vital Signs Temp Pulse Resp BP Pulse Ox 36.5 C 67 16 131/80 100 11/03/22 13:43 11/03/22 13:43 11/03/22 13:43 11/03/22 13:43 11/03/22 13:43 Pain Score Most Recent Pain Score: Most Recent Pain Score Pain Level 0 11/03/22 13:43 Assessment Mental Status: Awake (Alert & Oriented to Patient Baseline) Airway and Respiratory Function: Patent airway with normal (patient baseline) respiratory exam Cardiovascular Function: Hemodynamically Stable Hydration Status: Adequately Hydrated Nausea & Vomiting: No Nausea or Vomiting Pain: Pt. Denies Any Pain Peripheral Nerve Block: Patient did not receive a nerve block
--- NOTE | 2022-11-03 14:07 | W.PM.DSUDISC ---
Date of service: 11/03/22 Time of Service: 14:07 Discharge Plan Disposition Condition: Good Discharge Details Attending Provider: Simi Fairbanks Primary Care Provider: Cate Gómez Home Meds and New Rx's Prescriptions: Continued ascorbic acid (vitamin C) 500 mg tablet 500 mg PO DAILY cholecalciferol (vitamin D3) 25 mcg/drop ( 1,000 unit/drop) drops 25 mcg PO DAILY magnesium 150 mg PO HS calcium carbonate 500 mg calcium (1,250 mg) tablet 500 mg PO DAILY lorazepam 1 mg tablet 1 mg PO QHS PRN (Reason: insomnia) Qty: 10 0RF naproxen sodium [Aleve] 220 mg capsule 220 mg PO BID bupropion HCl 150 mg tablet extended release 24 hr 150 mg PO QAM Qty: 90 3RF multivitamin [Multi-Day] 1 EACH tablet 1 ea PO DAILY Discontinued norethindrone acetate [Aygestin] 5 mg tablet 5 mg PO .COMPLEX Qty: 30 0RF Rx Instructions: 5 mg orally every six hours beginning immediately; Discharge Instructions Activity:: Activity as Tolerated Diet:: As Tolerated
--- NOTE | 2022-11-03 14:07 | W.PM.OP ---
Date of service: 11/03/22 Time of Service: 13:00 Operative Note Operative Note DATE OF PROCEDURE: 11/03/22 PRE-OP DIAGNOSIS: Abnormal uterine bleeding PROCEDURE: Hysteroscopy, dilation and curettage. Kyleena IUD insertion. SURGEON: Simi Fairbanks Refer to Anesthesia Record COMPLICATIONS: None Indications: Long h/o irregular heavy bleeding with prior D&C in 2019. Mood changes with COCPs and POPs in the past. Recent acute episode of bleeding. Sono 3cm endometrium. Findings: Thick endometrium. No obvious polyps. Procedure Description: After informed consent was signed the patient was taken to the operating room and given General room air anesthesia. SCDs were placed on her legs. She was prepped and draped in the dorsal lithotomy position in the [facility]. A time out was performed. Her bladder was drained of urine prior to arrival in the OR. Exam under anesthesia revealed normal external genitalia, vagina normal for age and a normal sized uterus. A speculum was placed into the vagina to reveal the cervix. The anterior lip of the cervix was grasped with a single tooth tenaculum. The uterus was sounded to 10cm. The hysteroscope was assembled and inserted through the cervix. The uterine cavity was visualized. There was copious endometrial tissue but no obvious polyps or fibroids. A sharp curettage was performed collecting a large amount of endometrial tissue. The Kyleena IUD was inserted without difficulty. The strings were trimmed to ~3cm. The tenaculum was removed from the cervix with good hemostasis. The speculum was removed from the vagina. The patient was placed back into the supine position. She was moved to the stretcher and taken to the recovery room in stable condition.
== END 2022-11-03 15:09 | disposition home or self-care (01) ==
PROVIDERS: PCP Student in an Organized Health Care Education/Training Program; Visit Provider Obstetrics & Gynecology
PROC: 0UDB8ZZ Extraction of Endometrium, Via Natural or Artificial Opening Endoscopic (ICD-10-PCS; CPT 58558; principal; 2022-11-03 13:00)
PROC: (CPT 58563; 2022-11-03 13:00)
DX: N93.9 Abnormal uterine and vaginal bleeding, unspecified (principal); R93.89 Abnormal findings on diagnostic imaging of other specified body structures; F41.1 Generalized anxiety disorder; F32.A Depression, unspecified; R87.89 Other abnormal findings in specimens from female genital organs
CPT/HCPCS: 58563; 58300; 88305; J1100; J1885; J2250; J2405

== ENCOUNTER 2023-01-16 03:00 | Outpatient (CLI) | payer MEDICAID, SELFPAY ==
[2023-01-16 12:37] LABS: Abs Immature Grans 0.02 10^3/uL (0.0-0.06); Absolute Basophil Count 0.04 10^3/uL (0.0-0.2); Absolute Eosinophil Count 0.06 10^3/uL (0.0-0.7); Absolute Lymphocyte Count 2.29 10^3/uL (1.2-3.4); Absolute Monocyte Count 0.35 10^3/uL (0.1-0.8); Absolute Neutrophil Count 3.63 10^3/uL (1.2-6.7); Basophils % 0.6; Eosinophils % 0.9; HCT 36.4 % (36.0-46.0); HGB 11.8 g/dL (11.2-15.7); Immature Grans % 0.3; Lymphocytes % 35.8; MCH 27.9 pg (27.0-33.0); MCHC 32.4 % (32.0-36.0); MCV 86 fL (80-95); MPV 9.9 fL (8.0-11.0); Monocytes % 5.5; Neutrophils % 56.9; Platelet Count 261 10^3/uL (130-400); RBC 4.23 10^6/uL (3.93-5.22); RDW 11.9 % (11.7-14.6); RDW-SD 37.9 fL; WBC 6.39 10^3/uL (4.4-10.8)
[2023-01-16 13:48] LABS: Folate > 20.0 ng/mL (8.6-20.0)
[2023-01-16 14:00] LABS: Ferritin 10 ng/mL (8-252); TSH (W/Ref FT4) 1.43 uIU/mL (0.36-3.74); Vitamin B12 861 pg/mL (193-986)
[2023-01-16 14:18] LABS: Iron 51 ug/dL (50-170); Total Iron Binding Capacity 437 ug/dL (250-450); Transferrin Sat 12 % (15-50)
== END 2023-01-16 03:01 | disposition home or self-care (01) ==
LOC: LBO 03:00
PROVIDERS: PCP Student in an Organized Health Care Education/Training Program; Visit Provider Nurse Practitioner
DX: E55.9 Vitamin D deficiency, unspecified (principal); R45.1 Restlessness and agitation; R53.83 Other fatigue; Z87.898 Personal history of other specified conditions; Z91.89 Other specified personal risk factors, not elsewhere classified; D64.9 Anemia, unspecified; R63.5 Abnormal weight gain
CPT/HCPCS: 36415; 82607; 82728; 82746; 83540; 83550; 84443; 85025

== ENCOUNTER 2023-02-20 01:56 | Outpatient (RCR) | payer MEDICAID, SELFPAY ==
[2023-02-06] MEDS: IRON SUCROSE COMPLEX 200 MG in Normal Saline 100 ML 440 MG IVPB (09:24)
[2023-02-06] MEDS: Normal Saline Flush 10 ML SYR IVP (09:27)
[2023-02-13] MEDS: IRON SUCROSE COMPLEX 200 MG in Normal Saline 100 ML 440 MG IVPB (09:17)
[2023-02-13] MEDS: Normal Saline Flush 10 ML SYR IVP (09:17)
[2023-02-20] MEDS: IRON SUCROSE COMPLEX 200 MG in Normal Saline 100 ML 440 MG IVPB (09:11)
[2023-02-20] MEDS: Normal Saline Flush 10 ML SYR IVP (09:11)
== END 2023-02-20 23:59 | disposition home or self-care (01) ==
LOC: INF 01:56
PROVIDERS: PCP Student in an Organized Health Care Education/Training Program; Visit Provider Student in an Organized Health Care Education/Training Program
DX: D50.9 Iron deficiency anemia, unspecified (principal)
CPT/HCPCS: 96365; J1756

== ENCOUNTER 2023-03-06 03:34 | Outpatient (RCR) | payer MEDICAID, SELFPAY ==
[2023-02-27] MEDS: IRON SUCROSE COMPLEX 200 MG in Normal Saline 100 ML 440 MG IVPB (09:22)
[2023-02-27] MEDS: Normal Saline Flush 10 ML SYR IVP (09:27)
[2023-03-06] MEDS: Normal Saline Flush 10 ML SYR IVP (09:20)
[2023-03-06] MEDS: IRON SUCROSE COMPLEX 200 MG in Normal Saline 100 ML 440 MG IVPB (09:20)
== END 2023-03-23 23:59 | disposition home or self-care (01) ==
LOC: INF 03:34
PROVIDERS: PCP Student in an Organized Health Care Education/Training Program; Visit Provider Student in an Organized Health Care Education/Training Program
DX: D50.9 Iron deficiency anemia, unspecified (principal)
CPT/HCPCS: 96365; J1756

== ENCOUNTER 2023-03-13 05:01 | Outpatient (CLI) | payer MEDICAID, SELFPAY ==
[2023-03-13 11:02] LABS: HGB 13.1 g/dL (11.2-15.7)
[2023-03-13 11:17] LABS: Iron 145 ug/dL (50-170); Total Iron Binding Capacity 329 ug/dL (250-450); Transferrin Sat 44 % (15-50)
[2023-03-13 11:33] LABS: Hemoglobin A1C 5.5 % (<5.7)
[2023-03-13 18:33] LABS: Cortisol (Baseline) 10 ug/dL (4-23)
== END 2023-03-13 05:02 | disposition home or self-care (01) ==
LOC: LBO 05:01
PROVIDERS: PCP Student in an Organized Health Care Education/Training Program; Visit Provider Student in an Organized Health Care Education/Training Program
DX: E61.1 Iron deficiency (principal); F32.89 Other specified depressive episodes; R53.83 Other fatigue; R73.09 Other abnormal glucose
CPT/HCPCS: 36415; 80400; 83036; 83540; 83550; 85018

== ENCOUNTER 2023-03-17 18:16 | Outpatient (REF) | payer MEDICAID, SELFPAY ==
--- OUTSIDE RECORDS SUMMARY | 2023-03-17 18:20 | XMS_ITS | Continuity of Care Document ---
Author Name Unknown Organization [facility] Address [address] [place] [address] Encounter LTTL_GA FIN NBR [id number] Date(s): 09/16/22 - 09/16/22 [facility] [address], [place] [address] Discharge Disposition: Home or Self Care Attending Physician: Flor Sullivan Admitting Physician: Flor Sullivan Assessment and Plan Future Scheduled Tests Laboratory* Lipid Panel 06/07/22 * Microalbumin Level Urine 06/07/22 * TSH w/ Rflx to Free T4 06/07/22 * Hemoglobin A1c 06/07/22
[2023-03-21 18:01] LABS: Midnight Cortisol <50 ng/dL (<100)
== END 2023-03-17 18:17 | disposition home or self-care (01) ==
LOC: LBN 18:16
PROVIDERS: PCP Student in an Organized Health Care Education/Training Program; Visit Provider Student in an Organized Health Care Education/Training Program
DX: E61.1 Iron deficiency (principal); F41.1 Generalized anxiety disorder; F32.9 Major depressive disorder, single episode, unspecified; G47.9 Sleep disorder, unspecified; Z86.2 Personal history of diseases of the blood and blood-forming organs and certain disorders involving the immune mechanism
CPT/HCPCS: 82530

== ENCOUNTER → 2023-05-02 00:56 | Outpatient (CLI) | payer MEDICAID, SELFPAY ==
--- NOTE | 2023-05-02 07:00 | DI.US_ITS ---
Exam(s) US PELVIS TRANSVAGINAL EXAM: US PELVIS TRANSVAGINAL CLINICAL HISTORY: check IUD,ABNL UTERINE BLEEDING,Z30.431. TECHNIQUE: Transabdominal and transvaginal pelvic ultrasound was performed using standard protocol. COMPARISON: US US PELVIS TRANSVAGINAL from 10/26/2022 FINDINGS: UTERUS: Position: Anteverted. Size: 8.8 long by 4.1 AP by 5.0 transverse cm Endometrium: 0.7 cm. Normal for patient's menstrual status. The IUD is in good position. Myometrium: Unremarkable. Cervix: Unremarkable. OVARIES: Right: 3.2 x 1.9 x 2.2 cm Cyst or mass: No suspicious cystic or solid masses. Left: 3.7 x 2.5 x 3.1 cm Cyst or mass: No suspicious cystic or solid masses. There is a 2.6 x 2.1 x 2.8 cm follicular cyst on the left ovary. DOPPLER: Color: Symmetric and uniform flow to both ovaries. CUL-DE-SAC: Free fluid: None. Other: None. IMPRESSION: 1. Normal-appearing uterus with endometrial stripe within normal limits. 2. The IUD is in good position. 3. 2.6 x 2.1 x 2.8 cm left ovarian follicular cyst. DATA REPOSITORY:
== END ==
PROVIDERS: PCP Student in an Organized Health Care Education/Training Program; Visit Provider Obstetrics & Gynecology
DX: Z30.431 Encounter for routine checking of intrauterine contraceptive device (principal)
CPT/HCPCS: 76830; 76856

== ENCOUNTER 2023-06-09 15:02 | Outpatient (CLI) | payer MEDICAID, SELFPAY ==
[2023-06-09 12:25] LABS: HGB 13.4 g/dL (11.2-15.7)
[2023-06-09 13:14] LABS: ALT 22 U/L (14-59); AST 14 U/L (15-37); Albumin 4.1 g/dL (3.4-5.0); Alkaline Phosphatase 77 U/L (46-116); Anion Gap 7.4 mmol/L (3-11); BUN 14 mg/dL (7-18); Bilirubin, Total 0.7 mg/dL (0.2-1.0); CO2 28.6 mmol/L (21.0-32.0); CREATININE 0.9 mg/dL (0.55-1.02); Calcium 9.6 mg/dL (8.5-10.1); Calculated LDL 84 mg/dL (<100); Chloride 102 mmol/L (98-107); Cholesterol 170 mg/dL (<200); Estimated GFR 79.85 (mL/min/1.73m2); Ferritin 175 ng/mL (8-252); Glucose 94 mg/dL (74-106); HDL Cholesterol 65 mg/dL (40-60); Potassium 4.2 mmol/L (3.5-5.1); Sodium 138 mmol/L (136-145); Total Protein 7.5 g/dL (6.4-8.2); Triglyceride 108 mg/dL (<150)
[2023-06-09 13:18] LABS: Iron 124 ug/dL (50-170); Total Iron Binding Capacity 344 ug/dL (250-450); Transferrin Sat 36 % (15-50)
[2023-06-09 13:25] LABS: Vitamin D 25 Total 67.4 ng/mL (30-100)
== END 2023-06-09 15:03 | disposition home or self-care (01) ==
LOC: LBO 15:03
PROVIDERS: PCP Student in an Organized Health Care Education/Training Program; Visit Provider Student in an Organized Health Care Education/Training Program
DX: E61.1 Iron deficiency (principal); Z86.2 Personal history of diseases of the blood and blood-forming organs and certain disorders involving the immune mechanism; R73.09 Other abnormal glucose; Z13.220 Encounter for screening for lipoid disorders
CPT/HCPCS: 36415; 80053; 80061; 82306; 82728; 83540; 83550; 85018

== ENCOUNTER 2023-10-13 14:50 | Outpatient (CLI) | payer MEDICAID, SELFPAY ==
[2023-10-13 14:44] LABS: Abs Immature Grans 0.02 10^3/uL (0.0-0.06); Absolute Basophil Count 0.03 10^3/uL (0.0-0.2); Absolute Eosinophil Count 0.05 10^3/uL (0.0-0.7); Absolute Lymphocyte Count 2.35 10^3/uL (1.2-3.4); Absolute Neutrophil Count 5.76 10^3/uL (1.2-6.7); Basophils % 0.3; Eosinophils % 0.6; HCT 41.9 % (36.0-46.0); HGB 13.6 g/dL (11.2-15.7); Immature Grans % 0.2; Lymphocytes % 27.3; MCH 28.5 pg (27.0-33.0); MCHC 32.5 % (32.0-36.0); MCV 88 fL (80-95); MPV 9.8 fL (8.0-11.0); Monocytes % 4.6; Platelet Count 314 10^3/uL (130-400); RBC 4.77 10^6/uL (3.93-5.22); RDW 12.4 % (11.7-14.6); RDW-SD 40.5 fL; WBC 8.61 10^3/uL (4.4-10.8)
[2023-10-13 15:54] LABS: Iron 92 ug/dL (50-170); Total Iron Binding Capacity 374 ug/dL (250-450); Transferrin Sat 25 % (15-50)
[2023-10-13 16:16] LABS: Vitamin D 25 Total 69.3 ng/mL (30-100)
[2023-10-13 18:05] LABS: Ferritin 119 ng/mL (8-252)
== END 2023-10-13 14:51 | disposition home or self-care (01) ==
LOC: LBO 14:58
PROVIDERS: PCP Student in an Organized Health Care Education/Training Program; Visit Provider Student in an Organized Health Care Education/Training Program
DX: E61.1 Iron deficiency (principal); G47.61 Periodic limb movement disorder; Z87.898 Personal history of other specified conditions; K90.9 Intestinal malabsorption, unspecified
CPT/HCPCS: 36415; 82306; 82728; 83540; 83550; 85025

== ENCOUNTER 2024-01-12 10:54 | Outpatient (CLI) | payer MEDICAID, SELFPAY ==
[2024-01-12 10:42] LABS: HCT 38.3 % (36.0-46.0); HGB 12.6 g/dL (11.2-15.7); MCH 28.8 pg (27.0-33.0); MCHC 32.9 % (32.0-36.0); MCV 87 fL (80-95); Platelet Count 282 10^3/uL (130-400); RBC 4.38 10^6/uL (3.93-5.22); RDW 12.8 % (11.7-14.6); RDW-SD 41.2 fL
[2024-01-12 11:39] LABS: Anion Gap 7.9 mmol/L (3-11); BUN 14 mg/dL (7-18); CO2 28.1 mmol/L (21.0-32.0); CREATININE 0.9 mg/dL (0.55-1.02); Calcium 8.9 mg/dL (8.5-10.1); Calculated LDL 79 mg/dL (<100); Chloride 105 mmol/L (98-107); Cholesterol 158 mg/dL (<200); Estimated GFR 79.85 (mL/min/1.73m2); Ferritin 122 ng/mL (8-252); Glucose 93 mg/dL (74-106); HDL Cholesterol 62 mg/dL (40-60); Magnesium 2.1 mg/dL (1.8-2.4); Potassium 4.2 mmol/L (3.5-5.1); Sodium 141 mmol/L (136-145); Triglyceride 89 mg/dL (<150); Vitamin D 25 Total 69.1 ng/mL (30-100)
[2024-01-12 11:59] LABS: Iron 76 ug/dL (50-170); Total Iron Binding Capacity 335 ug/dL (250-450); Transferrin Sat 23 % (15-50)
== END 2024-01-12 10:55 | disposition home or self-care (01) ==
LOC: LBO 10:55
PROVIDERS: PCP Student in an Organized Health Care Education/Training Program; Visit Provider Student in an Organized Health Care Education/Training Program
DX: E61.1 Iron deficiency (principal); G47.19 Other hypersomnia; Z91.89 Other specified personal risk factors, not elsewhere classified; I10 Essential (primary) hypertension; Z13.220 Encounter for screening for lipoid disorders
CPT/HCPCS: 36415; 80048; 80061; 82306; 85027; 82728; 83540; 83550; 83735

== ENCOUNTER 2025-01-03 15:55 | Outpatient (CLI) | payer OTHER, SELFPAY ==
[2025-01-03 16:01] LABS: HCT 40.2 % (36.0-46.0); HGB 13.4 g/dL (11.2-15.7); MCH 28.5 pg (27.0-33.0); MCHC 33.3 % (32.0-36.0); MCV 86 fL (80-95); MPV 9.8 fL (8.0-11.0); Platelet Count 313 10^3/uL (130-400); RDW 12.1 % (11.7-14.6); RDW-SD 37.9 fL; WBC 6.82 10^3/uL (4.4-10.8)
[2025-01-03 16:02] LABS: HGB 13.1 g/dL (11.2-15.7)
[2025-01-03 16:29] LABS: Hemoglobin A1C 5.8 % (<5.7)
[2025-01-03 16:43] LABS: ALT 31 U/L (14-59); AST 17 U/L (15-37); Albumin 4.6 g/dL (3.4-5.0); Alkaline Phosphatase 85 U/L (46-116); Anion Gap 7.7 mmol/L (3-11); BUN 17 mg/dL (7-18); Bilirubin, Total 0.4 mg/dL (0.2-1.0); CO2 31.3 mmol/L (21.0-32.0); CREATININE 1.2 mg/dL (0.55-1.02); Calcium 9.7 mg/dL (8.5-10.1); Chloride 102 mmol/L (98-107); Estimated GFR 56.19 (mL/min/1.73m2); Ferritin 89 ng/mL (8-252); Glucose 95 mg/dL (74-106); Potassium 4.1 mmol/L (3.5-5.1); Sodium 141 mmol/L (136-145); TSH (W/Ref FT4) 1.13 uIU/mL (0.36-3.74); Total Protein 8.2 g/dL (6.4-8.2)
[2025-01-03 16:57] LABS: Iron 90 ug/dL (50-170); Total Iron Binding Capacity 387 ug/dL (250-450); Transferrin Sat 23 % (15-50)
[2025-01-06 09:24] LABS: Lyme Ab w Rflx to Lyme Confirm Negative (Negative)
[2025-01-07 18:27] LABS: Anaplasma phagocytophilum Negative (Negative); B. miyamotoi PCR Negative (Negative); Babesia divergens/MO-1 Negative (Negative); Babesia duncani Negative (Negative); Babesia microti Negative (Negative); Ehrlichia chaffeensis Negative (Negative); Ehrlichia ewingii/canis Negative (Negative); Ehrlichia muris eauclairensis Negative (Negative)
== END 2025-01-03 15:56 | disposition home or self-care (01) ==
LOC: LBO 15:55
PROVIDERS: Student in an Organized Health Care Education/Training Program; PCP Nurse Practitioner Family; Visit Provider Nurse Practitioner Family
DX: K90.9 Intestinal malabsorption, unspecified (principal); R53.83 Other fatigue; E61.1 Iron deficiency; N95.1 Menopausal and female climacteric states; G47.9 Sleep disorder, unspecified
CPT/HCPCS: 36415; 80053; 85027; 87798; 82728; 83036; 83540; 83550; 84443; 85018; 86618

== ENCOUNTER 2025-01-17 17:40 | Outpatient (CLI) | payer OTHER, SELFPAY ==
[2025-01-17 17:38] LABS: Anion Gap 10.3 mmol/L (3-11); BUN 16 mg/dL (7-18); CO2 28.7 mmol/L (21.0-32.0); CREATININE 0.9 mg/dL (0.55-1.02); Calcium 9.7 mg/dL (8.5-10.1); Chloride 104 mmol/L (98-107); Estimated GFR 79.35 (mL/min/1.73m2); Glucose 90 mg/dL (74-106); Potassium 3.8 mmol/L (3.5-5.1); Sodium 143 mmol/L (136-145)
== END 2025-01-17 17:41 | disposition home or self-care (01) ==
LOC: LBO 17:43
PROVIDERS: PCP Nurse Practitioner Family; Visit Provider Nurse Practitioner Family
DX: R89.9 Unspecified abnormal finding in specimens from other organs, systems and tissues (principal)
CPT/HCPCS: 36415; 80048

== ENCOUNTER 2025-01-31 12:00 | Outpatient (CLI) | payer OTHER, SELFPAY | END 2025-01-31 13:00 | disposition home or self-care (01) | LOC: DS 02-07 07:04 | PROVIDERS: PCP Nurse Practitioner Family; Visit Provider Dietitian, Registered | DX: E66.9 Obesity, unspecified (principal); R73.09 Other abnormal glucose | CPT/HCPCS: 97802 ==

== ENCOUNTER 2025-03-28 05:23 | Outpatient (CLI) | payer OTHER, SELFPAY ==
--- NOTE | 2025-03-28 08:18 | DI.MAMMO_ITS ---
Exam(s) MAMMO SCREENING EXAM: MAMMO SCREENING CLINICAL HISTORY: screening, Z12.31 TECHNIQUE: Mammograms were interpreted according to the usual protocol including computer analysis with CAD system, tomosynthesis and C-view imaging. COMPARISON: 2016 and 2020 FINDINGS: The breasts are composed of heterogeneously dense fibroglandular densities, Breast Density category C. No suspicious masses or suspicious microcalcifications are seen. There is a question of increased density in the medial left breast compared with prior exams versus overlying fibroglandular tissue. Spot compression views and ultrasound are requested for further evaluation. No skin thickening or abnormal axillary lymph nodes are seen. There has been no significant change in the appearance of the right breast from prior exams. IMPRESSION: BI-RADS Category 0 - Incomplete: Need additional imaging evaluation of the left breast. Right breast: Yearly screening mammography is recommended. Breast Density: Category C - The breasts are heterogeneously dense, which may obscure small masses. Breast density Category C or D implies that the patient has dense breast tissue. Dense breast tissue can make it harder to find cancer on a mammogram. Dense breast tissue is also associated with an increased risk of breast cancer. This information about the result of the mammogram report was provided to the patient to raise their awareness. Use this report when you speak with the patient about their risks for breast cancer, which includes their family history. At that time, you may recommend additional screening tests (Ultrasound or MRI) as these tests may add significant information. A negative radiographic report should not delay biopsy if a dominant or clinically suspicious mass is present. Up to ten percent of cancers are not identified on mammography. A negative report may reinforce clinical impression. Adenosis and dense breasts may obscure an underlying neoplasm. False positive reports average 6 to 10%.
== END 2025-03-28 05:43 ==
LOC: DI 05:23
PROVIDERS: PCP Nurse Practitioner Family; Visit Provider Nurse Practitioner Family
DX: Z12.31 Encounter for screening mammogram for malignant neoplasm of breast (principal); R92.323 Mammographic fibroglandular density, bilateral breasts; R92.333 Mammographic heterogeneous density, bilateral breasts
CPT/HCPCS: 77063; 77067

== ENCOUNTER 2025-04-29 11:16 | Day surgery (SDC) | payer OTHER, SELFPAY ==
--- NOTE | 2025-04-28 16:50 | W.PM.DSUDISC ---
Date of service: 04/29/25 Discharge Plan Disposition Patient Disposition: Home Condition: Good Discharge Details Attending Provider: Jass Goldsmith Primary Care Provider: Mary Wallis Home Meds and New Rx's Prescriptions: Continued ascorbic acid (vitamin C) 500 mg tablet 500 mg PO DAILY cholecalciferol (vitamin D3) 25 mcg/drop ( 1,000 unit/drop) drops 25 mcg PO DAILY Patient Comments: per [employer] (Libertad Josue) bupropion HCl 150 mg tablet extended release 24 hr 150 mg PO BID Qty: 180 3RF Rx Instructions: Continue with bid use lorazepam 1 mg tablet 1 mg PO QHS PRN (Reason: anxiety/agitation affecting sleep) Qty: 10 0RF Patient Comments: / tab within last month Rx Instructions: Continue PRN while awaiting PsychNP Liletta 20.4 mcg/24 hrs (8 yrs) 52 mg intrauterine device 1 device intrauterine ONCE Rx Instructions: as a single dose magnesium 500 mg tablet 15 mg PO DAILY Patient Comments: thinks it is 100mg multivitamin [Multi-Day] 1 EACH tablet 1 ea PO DAILY Discontinued bisacodyl [Dulcolax (bisacodyl)] 5 mg tablet,delayed release (DR/EC) 5 mg PO ONCE Qty: 4 0RF Rx Instructions: Take per colonoscopy instructions provided by ordering providers office polyethylene glycol 3350 17 gram/dose powder 17 g PO ONCE Qty: 238 0RF Rx Instructions: Take per colonoscopy instructions provided by ordering providers office Discharge Instructions Additional Instructions: Marivel, was great meeting you today, and I hope you are comfortable through the procedure and the make a quick recovery. Everything was totally normal. With a negative screening colonoscopy today, no other significant risk factors, I recommended 10-year interval for your next screening colonoscopy. If you need anything or have any questions at all, please do not hesitate to call at any time. 1. If tolerated, consume a soft, low fiber diet for 1-2 days. [address] Do not drive, drink alcohol, operate machinery, make critical decisions, or do activities that require coordination or balance for 24 hours. 3. Because air was put into your colon during the procedure, expelling air from your rectum (passing gas or farting) is normal. 4. You may not have a bowel movement for 1-3 days because of the colonoscopy prep. This is normal. 5. Go directly to the emergency room if you notice any of the following: Develop chills (warm to touch), or if you have a thermometer and your temperature is above 101 Difficulty breathing or difficultly swallowing Persistent vomiting Severe abdominal pain, other than gas cramps Severe chest pain Black, tarry stools Any bleeding ? exceeding one tablespoon 6. Call your physician if the site where your intravenous was started becomes red, swollen, painful, and warm to touch. 7. Your physician has reviewed your pre-procedure medications. Please continue to take those medications as previously ordered. You will be given specific information/education regarding any changes to your medications before leaving. Activity:: Activity as Tolerated Diet:: As Tolerated DS: Diagnosis Discharge Diagnosis (1) Normal screening colonoscopy: Status: Acute Asessment and Plan: Negative screening colonoscopy; follow-up in 10 years
[2025-04-29 11:43] VITALS: BP 126/92; PULSE 58; RESP 16; TEMP 36.2; O2SAT 99
--- NOTE | 2025-04-29 12:00 | ANES.PREOP_ITS ---
General Info Date of Service Date Performed: 04/29/25 Height: 5 ft 4 in Weight: 87.3 kg Body Mass Index (BMI): 33.0 Surgical Procedure: Operation Date: 04/29/25 11:20 Proposed Procedure Side Surgeon hammad Goldsmith MD Meds Allergies and Home Medications Allergies Allergy/AdvReac Type Severity Reaction Status Date / Time erythromycin base AdvReac Mild VOMITING Verified 04/29/25 11:38 Home Medication ?Medication ?Instructions ?Recorded multivitamin (Multi-Day tablet) 1 ea PO DAILY 11/19/12 ascorbic acid (vitamin C) 500 mg 500 mg PO DAILY 02/16 tablet cholecalciferol (vitamin D3) 25 25 mcg PO DAILY mcg/drop (1,000 unit/drop) oral drops levonorgestrel 20.4 mcg/24 hr (up 1 device intrauterin e ONCE 04/19/23 to 8 yrs) 52 mg intrauterine device (Liletta) bupropion HCl 150 mg 24 hr tablet, 150 mg PO BID #180 tabs 03/28/24 extended release magnesium 500 mg tablet 15 mg PO DAILY 01/03/25 lorazepam 1 mg tablet 1 mg PO QHS PRN anxiety/agit ation 01/22/25 affecting sleep #10 tabs bisacodyl 5 mg tablet,delayed 5 mg PO ONCE #4 tabs release (Dulcolax (bisacodyl)) polyethylene glycol 3350 17 17 g PO ONCE #238 grams gram/dose oral powder Current Visit Medications: Current Medications Generic Name Dose Route Start Last Admin Trade Name Freq PRN Reason Stop Dose Admin Ringer's Solution 1,000 mls @ 80 mls/hr 04/29/25 06:00 IV 05/28/25 23:59 INFUSION KIANA IV Miscellaneous Supplies 1 each 04/29/25 06:00 Iv Access IV 05/28/25 23:59 DIRECTED KIANA Sodium Chloride 0 ml 04/29/25 06:00 Normal Saline Flush 10 Ml Syr IV 05/28/25 23:59 PRN PRN Sodium Chloride 0 ml 04/29/25 06:00 Normal Saline 10 Ml Vial IJ 05/28/25 23:59 DIRECTED PRN Sterile Water 0 ml 04/29/25 06:00 Water,Injection,Sterile 10 Ml Vial IJ 05/28/25 23:59 DIRECTED PRN [facility] Active Problems Active Problems: Problem Status Onset Code Normal screening colonoscopy Acute Z12.11 Abnormal mammogram Acute R92.8 Adult BMI 33.0-33.9 kg/sq m Acute Z68.33 Breast cancer screening by mammogram Acute Z12.31 Elevated hemoglobin A1c Acute R73.09 Burn-out Acute Z73.0 Breakthrough bleeding with IUD Acute N92.1, Z97.5 Periodic limb movement Acute G47.61 Depression Acute F32.9 Generalized anxiety disorder Acute F41.1 Insomnia associated with menopause Acute N95.1 Sleep difficulties Acute G47.9 New medication added Acute Z79.899 Medical History Medical History Abnormal laboratory test Fatigue Malabsorption Iron deficiency Improved, 01/2024, but considering suppl to help diet. (IUD has helped decrease menses blood loss, x 6 mos per 02/14 ov discussion. History of palpitations Excessive daytime sleepiness much improved, 03/2024 IUD surveillance Liletta placed 04/19/23: placement confirmed on sono Apr 2023 History of ankle fracture COVID (~12/04/21) Vitamin D deficiency Improved, cont w/ gtt (12/2022) Arch pain of left foot Abnormal uterine bleeding (AUB) 09/2018:1mo heavy bleeding. Hbg 8.4, nl sono. Continuous OCPs x3mo. 11/2020: Pt declining Mirena. 09/2022: very heavy period x2 days, started Aygestin. 10/2022: D&C, Kyleena IUD placement. 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 Patient reports is a total ankle replacement [facility] Smoking/Tobacco Use Status: Never Passive smoking exposure: No Second hand exposure: Yes Alcohol Alcohol Intake: current Alcohol intake frequency: a few times a month Alcohol type: wine Substance Use Substance use: Never Substance use type: does not use Details: alcohol: t-4, one drink Prental History History 2 Para 1 Hx # Term Pregnancies 1 Multiple births Hx # Pregnancies Ectopic pregnancies AB induced Hx Number of Living Children 1 AB spontaneous Vital Signs and Lab Results Vital Signs Most Recent Vital Signs in EMR: Most Recent Vital Signs Temp Pulse Resp BP Pulse Ox 36.2 C L 58 L 16 126/92 H 99 04/29/25 11:43 04/29/25 11:43 04/29/25 11:43 04/29/25 11:43 04/29/25 11:43 Point of Care Results Point of Care Results: POC- Test(urine) Negative 04/29/25 11:47 Anesthesia Assessment and Plan Anesthesia History Personal History: No History of Anesthesia Complications Family History: No Family History of Anesthesia Complications Exercise Tolerance Exercise Tolerance: Metabolic Equivalents>4 Pertinent Negatives Pertinent Negatives: No Symptoms of GERD, No Major Cardiovascular Symptoms or Complaints, No Major Pulmonary Symptoms or Complaints and No History of CVA/TIA Cardiac & Pulmonary Exam Cardiac Exam: Normal S1/S2 Heart Sounds Pulmonary Exam: Clear Bilateral Breath Sounds Implantable Cardiac Device Does patient have a Pacemaker or an ICD?: No Airway Exam Known Difficult Airway: No Mallampati Class: 2 Mouth Opening: Normal (> 3cm) Thyromental Distance: Less than 3 cm Neck Range of Motion: Full ROM Neck Circumference: Normal Teeth Condition: Normal Dentition ASA Classification ASA Score: ASA 2 Emergency Case?: No NPO Status NPO Status: NPO Clears >2 hours, Solids >8 hours Status Status: Negative HCG Anesthesia Plan Resuscitation Status: Full Code Anesthesia Technique: General Anesthesia Airway Planned: Natural Airway Monitors Used: Standard Monitors
[2025-04-29 12:03] VITALS: BMI 33.0
[2025-04-29] MEDS: Lactated Ringers 1,000 ML 80 ML IV (12:04)
[2025-04-29 12:47] VITALS: BP 101/71; PULSE 58; RESP 16; TEMP 36.3; O2SAT 97
--- NOTE | 2025-04-29 12:55 | COLE_ITS ---
Date of service: 04/29/25 Time of Service: 12:55 Colonoscopy Report Date of procedure: 04/29/25 Pre-op diagnosis general: Screening colonoscopy Post-op diagnosis procedure note: other (Negative screening colonoscopy) Procedure: Colonoscopy Surgeon: Jass Goldsmith Anesthesia Type: General:No Airway Estimated blood loss (mL): 0 Pathology: none sent Complications: None Disposition: same day Indications: Marivel is a 49-year-old woman who needs her for screening colonoscopy Prep: Miralax/Dulcolax Procedure Start Time: 12:29 Procedure End Time: 12:41 Retraction Time: 7 Findings: Negative screening colonoscopy Procedure Description: After the induction of anesthesia, and with the patient in left lateral decubitus position, I began by performing an external anorectal exam.? Perineum and skin were normal, as was the anal verge.? There was no evidence of external hemorrhoids.? Next, I performed a digital rectal exam.? I did not appreciate any abnormal findings.? Next, I advanced a colonoscope into the rectal vault.? I performed retroflexion.? This appeared normal.? Using insufflation, I then advanced the colonoscope beyond the rectal folds and into the sigmoid colon before advancing towards the cecum.? The quality of the prep was outstanding.? The scope was noted to be in the cecum by identification of the ileocecal valve and appendiceal orifice.? I then began withdrawing the colonoscope using repeated irrigation as necessary for full evaluation of the colonic mucosa. ?Once the scope was withdrawn to the level of the rectum, great care was taken to examine portions of the rectal folds.? I saw no signs of tumors, polyps, or any other worrisome pathology. Finally, the scope was withdrawn and the patient was brought to the same-day surgery recovery unit as the anesthetic wore off. ?The findings and instructions were shared with the patient prior to discharge. [place] Bowel Prep [place] Bowel Prep Right Colon: 3 Left Colon: 3 Transverse Colon: 3 Total Score: 9
[2025-04-29 13:15] VITALS: BP 102/79; PULSE 52; RESP 16; TEMP 36.3; O2SAT 100
--- NOTE | 2025-04-29 13:18 | W.ANESPOSTOP ---
Postoperative Evaluation Date, Time and Location Date Performed: 04/29/25 Time Performed: 12:47 Patient Location: Day Surgery Unit Vital Signs Most Recent Imported Vital Signs: Most Recent Vital Signs Temp Pulse Resp BP Pulse Ox 36.3 C L 58 L 16 101/71 97 04/29/25 12:47 04/29/25 12:47 04/29/25 12:47 04/29/25 12:47 04/29/25 12:47 Pain Score Most Recent Pain Score: Most Recent Pain Score Pain Level 0 04/29/25 12:47 Assessment Mental Status: Awake (Alert & Oriented to Patient Baseline) Airway and Respiratory Function: Patent airway with normal (patient baseline) respiratory exam Cardiovascular Function: Hemodynamically Stable Hydration Status: Adequately Hydrated Nausea & Vomiting: No Nausea or Vomiting Pain: Pt. Denies Any Pain Peripheral Nerve Block: Patient did not receive a nerve block
== END 2025-04-29 13:40 | disposition home or self-care (01) ==
LOC: SUR 11:17
PROVIDERS: PCP Nurse Practitioner Family; Visit Provider Surgery
PROC: 0DJD8ZZ Inspection of Lower Intestinal Tract, Via Natural or Artificial Opening Endoscopic (ICD-10-PCS; CPT 45378; principal; 2025-04-29 11:15)
DX: Z12.11 Encounter for screening for malignant neoplasm of colon (principal)
CPT/HCPCS: 45378; 81025; J2405; J2704